=== PATIENT | male | born 1945 | race Caucasian/White ===

== ENCOUNTER → 2017-12-31 | Outpatient (CLI) | payer MEDICARE, OTHER ==
[~2017-12-31] MED LIST: ALLO-119 PO; ASPI-757 PO; BUSP30TA18 PO; CITA-145 PO; COLC0.6C3; LEVO750T44 PO; NITR-105 PO; TAMS0.4C70 PO
== END ==
LOC: LAB 13:40
PROVIDERS: ATTEND Urology
DX: N39.0 Urinary tract infection, site not specified (principal); R82.79 Other abnormal findings on microbiological examination of urine
CPT/HCPCS: 81001; 87088

== ENCOUNTER → 2018-02-01 | Outpatient (REF) | payer MEDICARE, OTHER | LOC: ZZSENDIN 13:11 | PROVIDERS: ATTEND Physician Assistant | DX: Z01.812 Encounter for preprocedural laboratory examination (principal); Z01.810 Encounter for preprocedural cardiovascular examination; Z01.818 Encounter for other preprocedural examination | CPT/HCPCS: 81001 ==

== ENCOUNTER → 2018-02-05 | Outpatient (CLI) | payer MEDICARE, OTHER | LOC: RESP 01:53 | PROVIDERS: ATTEND Physician Assistant | DX: J98.4 Other disorders of lung (principal) | CPT/HCPCS: 94060; 94726; 94729 ==

== ENCOUNTER 2018-03-05 00:13 | Observation (INO) | payer MEDICARE, OTHER ==
[2018-03-05] VITALS (15 sets, daily range): BP systolic 92–133; BP diastolic 58–81
[~2018-03-05] VITALS: Ht 170.2 cm; Wt 108.9 kg
[~2018-03-05 00:13] MED LIST changes: +ALB18R INH; +BUSP15TA69 PO; +GLUC15002 PO
[2018-03-05] MEDS: NORMOSOL R SOLN(*) 1000 ML BAG 1,000 ML IV PRN ×2 (05:26→09:15)
[2018-03-05] MEDS ORDERED: cloNIDine EPIDUR INJ 100MCG/ML 40 MCG, ROPIVACAINE 0.5% 20 ML VIAL 25 ML, EPINEPHrine H... EPI ONE (06:00)
[2018-03-05] MEDS ORDERED: ACETAMINOPHEN 500 MG TAB PO ONE (06:00)
[2018-03-05] MEDS ORDERED: PREGABALIN 75 MG CAPSULE PO ONE (06:00)
[2018-03-05] MEDS ORDERED: CLINDAMYCIN(*) 900 MG/NS 50 ML 50 ML IVPB ONE (06:00)
[2018-03-05] MEDS ORDERED: FAMOTIDINE 20 MG TAB PO ONE (06:00)
[2018-03-05] MEDS ORDERED: MIDAZOLAM 2 MG/2 ML VIAL IVP PRN (06:00)
[2018-03-05] MEDS ORDERED: BACITRACIN 50000 UNIT/VIAL 100,000 UNIT in NS 0.9% 3000 ML IRRIGATION BAG 3,000 ML IR ONE (06:00)
[2018-03-05] MEDS ORDERED: LIDOCAINE/SOD BICARB 8.4% SYR ID ONE (06:00)
[2018-03-05] MEDS ORDERED: TRANEXAMIC AC 1000 MG/10ML SDV 1,000 MG in DEXTROSE 5% 50 ML BAG 50 ML IV ONE (06:00)
[2018-03-05] MEDS ORDERED: CELECOXIB 200 MG CAP PO ONE (06:00)
[2018-03-05] MEDS ORDERED: fentaNYL CITR 100 MCG/2 ML AMP ONE ×2 (06:43→08:40)
[2018-03-05] MEDS ORDERED: PROPOFOL EMUL(*) 10MG/ML 20 ML 20 ML ONE ×2 (06:44→08:41)
[2018-03-05] MEDS ORDERED: LIDOCAINE 2% IV 100 MG/5ML SYR ONE (06:44)
[2018-03-05] MEDS ORDERED: PROPOFOL EMUL(*) 10MG/ML 20 ML 60 ML ONE (06:45)
[2018-03-05] MEDS ORDERED: BUPIVACAINE 0.5% INJ 30ML VIAL ONE (07:00)
[2018-03-05] MEDS ORDERED: ONDANSETRON 4 MG/2 ML VIAL ONE (07:17)
[2018-03-05] MEDS ORDERED: DEXAMETHASONE SOD PHOS 10MG/ML ONE (07:17)
[2018-03-05] MEDS ORDERED: KETAMINE HCL 200 MG/20 ML MDV ONE ×2 (07:18→08:20)
[2018-03-05] MEDS ORDERED: PROPOFOL EMUL(*) 10MG/ML 20 ML 40 ML ONE (07:50)
[2018-03-05] MEDS ORDERED: VASOPRESSIN 20 UNIT/ML VIAL ONE (08:00)
--- NOTE | 2018-03-05 09:44 | RADIOLOGY IMAGING REPORT ---
FACILITY: [facility] PATIENT NAME: Tim Franco : 1945 MR: [id number] V: [id number] EXAM DATE: ORDERING PHYSICIAN: ARABELLA CABRERA TECHNOLOGIST: [place] [facility] [place]: Tim Franco : 1945 Visit/Account:[id number] Date of Sevice: 03/05/2018 Exam type: KNEE LIMITED RIGHT History: S/P TOTAL KNEE ARTHROPLASTY Comparison: None. Findings: Two views the right knee demonstrate a right knee arthroplasty in good anatomic alignment. Soft tiss ue gas projects over the anterior aspect this postoperative knee. Incidentally noted are moderate va scular calcifications IMPRESSION: 1. As above Report Dictated By: Ching Calhoun MD at 03/05/2018 9:39 AM Report E-Signed By: Ching Calhoun MD at 03/05/2018 9:40 AM WSN:[id number]
[2018-03-05] MEDS ORDERED: ALBUTEROL 2.5 MG/3 ML NEB NEB PRN (11:05)
[2018-03-05] MEDS ORDERED: ZOLPIDEM TARTRATE 5 MG TAB PO PRN (11:15)
[2018-03-05] MEDS ORDERED: BISACODYL 10 MG SUPP PR PRN (11:15)
[2018-03-05] MEDS ORDERED: diphenhydrAMINE 25 MG CAP PO PRN (11:15)
[2018-03-05] MEDS ORDERED: LR 1000 ML BAG 1000 ML IV PRN (11:15)
[2018-03-05] MEDS ORDERED: PROMETHAZINE HCL(*) 25 MG SUPP PR PRN (11:15)
[2018-03-05] MEDS ORDERED: MAGNESIUM HYDROXIDE* 30ML UDCP PO PRN (11:15)
[2018-03-05] MEDS ORDERED: ONDANSETRON 4 MG/2 ML VIAL IVP PRN (11:15)
[2018-03-05] MEDS ORDERED: HYDROmorphone HCL 2 MG/ML SDV IVP PRN (11:15)
[2018-03-05] MEDS ORDERED: diphenhydrAMINE 50 MG/ML VIAL IVP PRN (11:15)
[2018-03-05] MEDS ORDERED: PROMETHAZINE 25 MG/ML 1 ML AMP IVP PRN (11:15)
[2018-03-05] MEDS ORDERED: MAGNESIUM CITRATE 300 ML BTL PO PRN (11:15)
[2018-03-05] MEDS ORDERED: FLUSH 10 ML SYR IVP PRN (11:15)
--- NOTE | 2018-03-05 11:38 | Hospitalist Progress Note ---
Subjective Progress Notes Subjective No cp/sob. 200cc of EBL. 1950cc of crystalloid, TXA and dexamethasone given intra-op. Lowest intra-op BP was 80/50. Physical Exam Vital Signs Date Time Temp Pulse Resp B/P (MAP) Pulse Ox O2 Delivery O2 Flow Rate FiO2 03/05/18 10:15 76 12 97 03/05/18 05:22 97.8 133/81 (98) Room Air Intake and Output 03/06/18 07:00 Intake Total 2350 ml Output Total 150 ml Balance 2200 ml Intake IV Total 2350 ml Output Estimated Blood Loss 150 ml General Appearance: Alert, Awake, No Acute Distress Cardiovascular: Regular Rate and Rhythm Respiratory: Clear to Auscultation Extremities: No Edema Assessment and Plan Problems: (1) Status post knee replacement Status: Acute Assessment & Plan: No CV/pulmonary issues. He has no personal h/o DVT/PE, but his father had a PE in his [address]'s[address] Nicole has already prescribed Xarelto as an outpatient, so will start it tomorrow. His ASA that he takes chronically ( stopped it 10 days prior to surgery) will be restarted after he finishes the Xarelto. The patient has no h/o CAD/CVD. (2) Anxiety and depression Status: Chronic Assessment & Plan: Continue chronic Buspirone (which he takes once daily), and Citalopram. He will only be on Phenergan for nausea because Zofran and Citalopram cause QT prolongation. (3) Gout Status: Chronic Assessment & Plan: No symptoms consistent with a flare. Continue chronic Allopurinol and will use prn Colchicine for a flare. (4) Obstructive lung disease Status: Chronic Assessment & Plan: Recently diagnosed by PFT's. He uses albuterol prn, which will be continued. Lungs are clear. (5) FLOYD on CPAP Status: Chronic Problem Qualifiers (1) Status post knee replacement: Laterality: right Qualified Codes: Z96.651 - Presence of right artificial knee joint DELBERT MOREJON MD Mar 05, 2018 11:38
[2018-03-05] MEDS: CLINDAMYCIN 150 MG CAP PO SCH ×2 (16:40→23:01)
--- NOTE | 2018-03-05 18:57 | OPERATIVE REPORT 1 ---
EVENT DATE: March 05, 2018 SURGEON: Harman Nicole MD ANESTHESIOLOGIST: Ant Graham MD ANESTHESIA: General plus spinal. LABORER SALVAGE: ASYA Michaels PREOPERATIVE DIAGNOSIS Right knee osteoarthritis. POSTOPERATIVE DIAGNOSIS Right knee osteoarthritis. PROCEDURE PERFORMED Right total knee arthroplasty. FINDINGS The patient had a significant amount of arthritic changes associated with his knee and was amenable for a total knee arthroplasty. ESTIMATED BLOOD LOSS About 200 mL. DRAINS None. COMPLICATIONS None. TOURNIQUET TIME Up for about 22 minutes just during the cementation and the initial sewing part. IMPLANTS USED DePuy Attune size 7 posterior stabilized femur with a size 7 rotating platform, tibia a 7 x 5 rotating platform tibial insert, and a 38 anatomic patella. SPECIMENS None. INDICATIONS AND HISTORY This patient is a 72-year-old male who presented to my clinic for evaluation of right knee pain and irritation going on for some time. He continued to have pain and irritation despite conservative management, and so therefore, he wanted to go ahead with a total knee arthroplasty today, March 05, 2018. The risks and benefits were discussed with him, and informed consent was obtained. We did talk to him specifically about his flexion contracture associated with this and that it may not go completely straight again, but that we will do everything we can to get him as stable as possible and get him as much use as possible. DESCRIPTION OF PROCEDURE As the patient was brought in the operating room, he and the procedure were both verified. He was placed supine on the operative table and induced and intubated by Anesthesia after being given a spinal also. The right lower extremity was then prepped and draped in the usual fashion, and a timeout was observed verifying the correct patient and procedure. Our incision was made over the anterior aspect of the knee, taken through the skin and subcutaneous tissue. I was able to go through down to the medial parapatellar approach and then went into the medial parapatellar approach without any difficulty and cauterized the bleeders along the way. I then was able to remove the anterior aspect of the menisci on both sides and the patellar fat pad in order to gain access to the knee itself. Once I was able to do this, I then removed the superior synovitis above the femur and then was able to high flex the knee and shanthi the patella. Once I was able to do this, I was then able to remove the ACL and PCL complex and then drill a central hole down the central portion of the femur. We then used the Attune guides set on 5 and 9 in order to resect the distal femur and then sized it to a 7 distal femur. We then put in the four-in-one cutting block , then cut the four cuts without any difficulty, and then put in the notch block and made those cuts without any difficulty. There were some posterior osteophytes in the area that were removed shortly after this and a little bit of residual aspects of the PCL through this area. I was then able to subluxate the tibia forward and then remove the posterior aspects of the menisci. I gained good access and exposure to the tibia. I was then able to drill a central hole into the tibia using the Attune guides once again set on zero slope. I was then able to resect 3 mm off the medial side using the standard guides and then made sure that everything was in good alignment. I was then able to resect a little bit more of the posterior aspect of the knee and then release some of the posterior capsule to try to work on flexion contracture using a Rose in the posterior condyles. This was then followed by sizing of the tibia to a 7. We ensured that this was still in good alignment and had no other signs of problems with the alignment yrn. We then prepped the tibia with the standard drill punch and then placement of the trial components in this area. I then put in the full trial components with a 7 posterior stabilized femur with a 7 x 5 insert on the rotating platform tibia. This had good flexion and extension. We were able to get him to full extension , and he had good tracking of the patella with flexion and extension associated with this. There were no signs of instability with the anterior drawer or medial or lateral valgus stress. I then turned attention to the patella where I was then able to resect about 9.5 mm off the patella, sized it to a 38 mm patella, and this still tracked well and had no signs of problems. So therefore, these were the final components chosen. The tourniquet was then inflated. The cement was mixed on the back table, and the final components were installed without any difficulty. The cement was allowed to harden, and then I was able to flex and extend it and found that everything was still in good alignment. I then closed the medial parapatellar approach with #2 Stratafix. This was then followed by a 2- 0 Vicryl in the subcutaneous fat and then a 2-0 Stratafix in the subcutaneous tissue, followed by a subcuticular 4-0 Monocryl and then dressed with a bio- occlusive dressing. The tourniquet was let down after about 22 minutes after the first part of sewing. There were no signs of further bleeding or issues associated with this, and so therefore, a sterile dressing was applied and a large wrap. The patient was awakened, extubated, and transferred to PACU in stable condition. BANG
[2018-03-05] MEDS ORDERED: TAMSULOSIN HCL 0.4 MG CAP PO SCH (21:00)
[2018-03-06 01:51] VITALS: BP 129/79
[2018-03-06 05:55] VITALS: BP 116/76
[2018-03-06] MEDS: CLINDAMYCIN 150 MG CAP PO SCH (06:16)
[2018-03-06] MEDS ORDERED: OXYC-865 PO (07:28)
[2018-03-06 07:35] VITALS: BP 115/73
[2018-03-06] MEDS ORDERED: CITALOPRAM HYDROBROM 20 MG TAB PO SCH (09:00)
[2018-03-06] MEDS ORDERED: RIVAROXABAN 10 MG TAB PO SCH (09:00)
[2018-03-06] MEDS ORDERED: ALLOPURINOL 300 MG TAB PO SCH (09:00)
[2018-03-06] MEDS ORDERED: busPIRone HCL 5 MG TAB PO SCH (09:00)
[2018-03-06] MEDS ORDERED: RIV10 PO (10:53)
--- NOTE | 2018-03-06 13:35 | Hospitalist Progress Note ---
Subjective Progress Notes Subjective He was admitted s/p knee replacement. He had no acute events overnight. Patient Complains of: Cardiovascular: No: Chest Pain Respiratory: No: Shortness of Breath Physical Exam Vital Signs Date Time Temp Pulse Resp B/P (MAP) Pulse Ox O2 Delivery O2 Flow Rate FiO2 03/06/18 07:54 90 03/06/18 07:54 Room Air 03/06/18 07:35 97.8 78 14 115/73 (87) 03/06/18 01:51 2.0 Intake and Output 03/07/18 01:00 Intake Total 1010 ml Balance 1010 ml Intake Oral 1010 ml # Voids 1 General Appearance: Alert, Awake, No Acute Distress, Afebrile Neuro: No Gross deficits Cardiovascular: Regular Rate and Rhythm Respiratory: No Respiratory Distress, Clear to Auscultation GI: Soft and Non-Tender Psych: Alert & Oriented X3, Appropriate Mood & Affect Result Diagram: 03/06/18 0549 03/06/18 0549 Assessment and Plan Problems: (1) Status post knee replacement Status: Acute Assessment & Plan: No CV/pulmonary issues. He has no personal h/o DVT/PE, but his father had a PE in his [address]'s. [address] Nicole has already prescribed Xarelto as an outpatient, so will start it tomorrow. His ASA that he takes chronically ( stopped it 10 days prior to surgery) will be restarted after he finishes the Xarelto. The patient has no h/o CAD/CVD. (2) Anxiety and depression Status: Chronic Assessment & Plan: Continue chronic Buspirone (which he takes once daily), and Citalopram. He will only be on Phenergan for nausea because Zofran and Citalopram cause QT prolongation. (3) Gout Status: Chronic Assessment & Plan: No symptoms consistent with a flare. Continue chronic Allopurinol and will use prn Colchicine for a flare. (4) Obstructive lung disease Status: Chronic Assessment & Plan: Recently diagnosed by PFT's. He uses albuterol prn, which will be continued. Lungs are clear. (5) FLOYD on CPAP Status: Chronic Exam Sepsis Risk: No Definite Risk Problem Qualifiers (1) Status post knee replacement: Laterality: right Qualified Codes: Z96.651 - Presence of right artificial knee joint ELIAS AGUIAR [facility] Mar 06, 2018 13:35
[2018-03-06 13:50] VITALS: Ht 170.2 cm; Wt 108.9 kg
[2018-03-14] MEDS ORDERED: CITA-145 PO (08:46)
== END 2018-03-06 07:29 | disposition home or self-care (01) ==
LOC: OR 00:13 → MED 10:45
PROVIDERS: ADMIT Orthopaedic Surgery; ATTEND Orthopaedic Surgery
DX: M17.11 Unilateral primary osteoarthritis, right knee (principal); E66.9 Obesity, unspecified; I49.9 Cardiac arrhythmia, unspecified; Z79.01 Long term (current) use of anticoagulants; Z79.82 Long term (current) use of aspirin
CPT/HCPCS: 27447; 36415; 73560; 85014; 85018; 85610; 86850; 86900; 86901; 96372; 97116; 97161; 97530; A9270; C1713; C1776; G0378; J0171; J0735; J1100; J1170; J1885; J2001; J2250; J2405; J2550; J2704; J2795; J3010; J3490; J7050; J7060; 82310; 82374; 82435; 82565; 82947; 84132; 84295; 84520

== ENCOUNTER 2018-03-31 11:03 | Emergency (ER) | payer MEDICARE, OTHER ==
[2018-03-06 13:50] VITALS: Wt 108.9 kg
[~2018-03-31 11:03] MED LIST changes: +OXYC-865 PO; +RIV10 PO
--- NOTE | 2018-03-31 11:13 | ER Report ---
History and Physical Time Seen By MD: 11:13 HPI/ROS CHIEF COMPLAINT: Knee redness, increasing pain. HISTORY OF PRESENT ILLNESS: 72-year-old male patient presents to emergency room with complaint of right knee redness and increasing pain. Patient states that he gone to physical therapy on . They had noticed that he had an area on the proximal end of the scar which was erythematous. She states that she felt that he was "festering". He states they then tried to pull out a suture that did not absorb. He states that since then he's noticed some purulent drainage from that site. He states that he tried to express out some purulent drainage this morning. He states that he was able to get out some, however when he went to congregation the knees became very warm to the touch, and started having increasing pain. Patient denies having any nausea, vomiting or diarrhea. Patient states he is not taking any medication for this. REVIEW OF SYSTEMS: Respiratory: No cough, no dyspnea. Cardiovascular: No chest pain, no palpitations. Gastrointestinal: No vomiting, no abdominal pain. Musculoskeletal: As noted above Allergies: Coded Allergies: latex (Verified Allergy, Severe, Hives, Rash, 06/15/17) Penicillins (Verified Allergy, Intermediate, Tongue Swelling, 06/15/17) oxycodone (Verified Allergy, Intermediate, ITCHY, RASH , 03/31/18) pollen extracts (Verified Allergy, Intermediate, Sinus Issues, 06/15/17) Uncoded Allergies: Rubber (Adverse Reaction, Intermediate, Dry, Itch, Irritation, 06/05/17) Home Meds Active Scripts Sulfamethoxazole/Trimet 800-160 Mg Tab (BACTRIM DS TABLET) 1 Each Tablet, 1 TAB PO Q12H, #20 TAB Prov:ARIANA DE LA CRUZ 03/31/18 Citalopram Hydrobromide (CITALOPRAM HBR) 20 Mg Tablet, 40 MG PO QDAY, #180 TAB 1 Refill Prov:THO BECERRIL MD 03/14/18 Reported Medications Aspirin (ASPIRIN) 325 Mg Tablet, 325 MG PO DAILY, TAB 03/31/18 Albuterol Sulfate (VENTOLIN HFA) 18 Gm Inh, 1-2 PUFF INH PRN, INH 02/25/18 Glucosamine Hcl (GLUCOSAMINE HCL) 1,500 Mg Tablet, 1500 MG PO 02/25/18 Allopurinol (ZYLOPRIM) 300 Mg Tablet, 100 MG PO QDAY, TAB 02/25/18 Buspirone Hcl (BUSPIRONE HCL) 15 Mg Tablet, 15 MG PO BID, #10 TAB 02/25/18 Colchicine (Colchicine) 0.6 Mg Capsule, Y for GAS/HEARTBURN 06/05/17 Tamsulosin Hcl (TAMSULOSIN HCL) 0.4 Mg Cap.er.24h, 0.4 MG PO QDAY, CAP 06/05/17 Discontinued Reported Medications Oxycodone Hcl/Acetaminophen (PERCOCET 5-325 MG TABLET) 1 Each Tablet, 1 EACH PO Q4H for PAIN, #42 TAB 03/06/18 Discontinued Scripts Rivaroxaban (XARELTO 10 MG TAB (OR EQUIV)) 10 Mg Tablet, 10 MG PO QDAY, #14 TAB Prov:ELIAS AGUIAR VARNISHING MACHINE OPERATOR 03/06/18 Past Medical/Surgical History Patient has a past medical history of irregular heartbeat, asthma, frequent UTI , gout, arthritis, depression. Patient has a surgical history of appendectomy, back surgery, torn retina repair , tonsillectomy. Reviewed Nurses Notes: Yes Hx Smoking: No Smoking Status: Never Smoker Hx Alcohol Use: No Constitutional Vital Sign - Last 24 Hours 03/31/18 03/31/18 03/31/18 03/31/18 11:03 11:09 11:11 11:18 Temp 99.5 Pulse ??? 98 96 Resp 18 B/P (MAP) 124/76 (92) 124/76 Pulse Ox 92 92 O2 Delivery Room Air 03/31/18 03/31/18 03/31/18 03/31/18 11:30 11:33 11:48 12:00 Pulse 92 92 B/P (MAP) 126/65 (85) 124/78 (93) Pulse Ox 92 92 03/31/18 03/31/18 03/31/18 03/31/18 12:03 12:18 12:23 12:30 Pulse 91 88 90 B/P (MAP) 119/76 (90) Pulse Ox 89 91 88 03/31/18 03/31/18 03/31/18 03/31/18 12:38 12:53 13:00 13:08 Pulse 85 83 88 B/P (MAP) 121/75 (90) Pulse Ox 91 91 92 Intake and Output 03/31/18 03/31/18 04/01/18 15:00 23:00 07:00 Intake Total 50 ml Balance 50 ml Physical Exam General Appearance: The patient is alert, has no immediate need for airway protection and no current signs of toxicity. Respiratory: Chest is non tender, lungs are clear to auscultation. Cardiac: regular rate and rhythm Gastrointestinal: Abdomen is soft and non tender, no masses, bowel sounds normal. Musculoskeletal: Neck: Neck is supple and non tender. Extremities have full range of motion and are non tender. Skin: No rashes or lesions. Patient has some redness to the right knee, no obvious swelling. Does have an opening at the proximal end of the scar. DIFFERENTIAL DIAGNOSIS: After history and physical exam differential diagnosis was considered for cellulitis, septic joint, infected replacement. Medical Decision Making Data Points Result Diagram: 03/31/18 1130 03/31/18 1130 Laboratory Hematology Test 03/31/18 11:30 Red Blood Count 3.71 M/uL (4.00-5.60) Mean Corpuscular Volume 96.0 fL (80.0-96.0) Mean Corpuscular Hemoglobin 34.3 pg (26.0-33.0) Mean Corpuscular Hemoglobin Concent 35.8 g/dL (32.0-36.0) Red Cell Distribution Width 14.3 % (11.5-14.5) Mean Platelet Volume 7.1 fL (7.2-11.1) Neutrophils (%) (Auto) 62.3 % (39.4-72.5) Lymphocytes (%) (Auto) 25.4 % (17.6-49.6) Monocytes (%) (Auto) 8.5 % (4.1-12.4) Eosinophils (%) (Auto) 2.5 % (0.4-6.7) Basophils (%) (Auto) 1.3 % (0.3-1.4) Nucleated RBC Relative Count (auto) 0.0 /100WBC Neutrophils # (Auto) 4.7 K/uL (2.0-7.4) Lymphocytes # (Auto) 1.9 K/uL (1.3-3.6) Monocytes # (Auto) 0.6 K/uL (0.3-1.0) Eosinophils # (Auto) 0.2 K/uL (0.0-0.5) Basophils # (Auto) 0.1 K/uL (0.0-0.1) Nucleated RBC Absolute Count (auto) 0.00 K/uL Sodium Level 139 mmol/L (137-145) Potassium Level 4.0 mmol/L (3.5-5.0) Chloride Level 105 mmol/L (98-107) Carbon Dioxide Level 23 mmol/L (22-30) Blood Urea Nitrogen 17 mg/dl (9-21) Creatinine 1.00 mg/dl (0.66-1.25) Glomerular Filtration Rate Calc > 60.0 Random Glucose 109 mg/dl (75-110) Calcium Level 9.2 mg/dl (8.4-10.2) Total Bilirubin 0.5 mg/dl (0.2-1.3) Aspartate Amino Transf (AST/SGOT) 22 U/L (0-35) Alanine Aminotransferase (ALT/SGPT) 22 U/L (0-56) Alkaline Phosphatase 65 U/L (0-126) C-Reactive Protein 1.6 mg/dl (<1.0) Total Protein 7.4 g/dl (6.3-8.2) Albumin 4.2 g/dl (3.5-5.0) Chemistry Test 03/31/18 11:30 White Blood Count 7.5 k/uL (4.5-11.0) Red Blood Count 3.71 M/uL (4.00-5.60) Hemoglobin 12.7 g/dL (14.0-18.0) Hematocrit 35.6 % (42.0-52.0) Mean Corpuscular Volume 96.0 fL (80.0-96.0) Mean Corpuscular Hemoglobin 34.3 pg (26.0-33.0) Mean Corpuscular Hemoglobin Concent 35.8 g/dL (32.0-36.0) Red Cell Distribution Width 14.3 % (11.5-14.5) Platelet Count 223 K/uL (150-450) Mean Platelet Volume 7.1 fL (7.2-11.1) Neutrophils (%) (Auto) 62.3 % (39.4-72.5) Lymphocytes (%) (Auto) 25.4 % (17.6-49.6) Monocytes (%) (Auto) 8.5 % (4.1-12.4) Eosinophils (%) (Auto) 2.5 % (0.4-6.7) Basophils (%) (Auto) 1.3 % (0.3-1.4) Nucleated RBC Relative Count (auto) 0.0 /100WBC Neutrophils # (Auto) 4.7 K/uL (2.0-7.4) Lymphocytes # (Auto) 1.9 K/uL (1.3-3.6) Monocytes # (Auto) 0.6 K/uL (0.3-1.0) Eosinophils # (Auto) 0.2 K/uL (0.0-0.5) Basophils # (Auto) 0.1 K/uL (0.0-0.1) Nucleated RBC Absolute Count (auto) 0.00 K/uL Glomerular Filtration Rate Calc > 60.0 Calcium Level 9.2 mg/dl (8.4-10.2) Total Bilirubin 0.5 mg/dl (0.2-1.3) Aspartate Amino Transf (AST/SGOT) 22 U/L (0-35) Alanine Aminotransferase (ALT/SGPT) 22 U/L (0-56) Alkaline Phosphatase 65 U/L (0-126) C-Reactive Protein 1.6 mg/dl (<1.0) Total Protein 7.4 g/dl (6.3-8.2) Albumin 4.2 g/dl (3.5-5.0) EKG/Imaging Imaging KNEE 4 VIEW RIGHT Indication: Right knee pain. Comparison: 03/05/2018. Findings: 3 views right knee were obtained. Right knee arthroplasty are again present without periprosthetic lucency. No acute fracture or dislocation. No bony lesions. Small joint effusion is again present. Soft tissues are unremarkable with vascular calcifications present. IMPRESSION: 1.No acute osseous abnormality of the right knee. Small joint effusion. Report Dictated By: Nicola Agarwal at 03/31/2018 12:15 PM Report E-Signed By: Nicola Agarwal at 03/31/2018 12:17 PM ED Course/Re-evaluation ED Course Patient was admitted and examined, history and physical were obtained. Differential diagnoses were considered. On examination patient does have erythema and warmth to the right knee. He does have a wound the proximal end of the surgical scar. It measures approximately 3 mm across. Patient has tenderness to the knee. A CBC, CMP, CRP were done. Labs were unremarkable except the patient did have a slightly elevated CRP of 1.6. X-rays of the knee were unremarkable. I did call and discuss the case with Dr. Nicole, orthopedic surgeon, who performed the knee replacement. We discussed doing a tap of the knee. I told him that I was hesitant due to the apparent cellulitis and with the artificial joint. Dr. Nicole stated that he would prefer not to do a tap of the knee elicits was absolutely necessary. He states he did not feel that was necessary at this time. He recommended doing IV antibiotics here in the emergency room and then discharge the patient on oral antibiotics. I discussed this with the patient who verbalized understanding and agreement. He did receive 60 mg of clindamycin here in the emergency room we'll go ahead and discharge him home with Bactrim. He is follow-up with Dr. Nicole this week. He is to call tomorrow to make an appointment. Patient and his verbalized understanding and agreement with plan. Decision to Disposition Date: Mar 31, 2018 Decision to Disposition Time: 13:16 Depart Departure Latest Vital Signs Vital Signs Date Time Temp Pulse Resp B/P (MAP) Pulse Ox O2 Delivery O2 Flow Rate FiO2 03/31/18 13:08 88 92 03/31/18 13:00 121/75 (90) 03/31/18 11:11 99.5 18 Room Air Impression: Primary Impression: Cellulitis Condition: Improved Disposition: HOME OR SELF-CARE Referrals: THO BECERRIL MD (PCP) New Scripts Sulfamethoxazole/Trimet 800-160 Mg Tab (BACTRIM DS TABLET) 1 Each Tablet 1 TAB PO Q12H, #20 TAB Prov: ARIANA DE LA CRUZ 03/31/18 Patient Instructions: Cellulitis (ED) Additional Instructions: Limit activity by pain. Get plenty of rest. Follow up with Dr. Nicole, call tomorrow to make an appointment. Return to the ER if condition worsens. Take antibiotics as directed. Take Tylenol or Ibuprofen as needed for pain. You may change the dressing as needed. Problem Qualifiers Primary Impression: Cellulitis Site of cellulitis: extremity Site of cellulitis of extremity: lower extremity Laterality: right Qualified Codes: L03.115 - Cellulitis of right lower limb ARIANA DE LA CRUZ VARNISHING MACHINE OPERATOR Mar 31, 2018 11:13
[2018-03-31] MEDS ORDERED: ASPI-757 PO (11:26)
[2018-03-31 11:53] LABS: PLATELET COUNT, AUTOMATED 223 K/uL (150-450)
--- NOTE | 2018-03-31 12:24 | RADIOLOGY IMAGING REPORT ---
FACILITY: [facility] PATIENT NAME: Tim Franco : 1945 MR: [id number] V: [id number] EXAM DATE: ORDERING PHYSICIAN: ARIANA DE LA CRUZ TECHNOLOGIST: Location: [facility] Patient: Tim Franco : 1945 Visit/Account:[id number] Date of Sevice: 03/31/2018 KNEE 4 VIEW RIGHT Indication: Right knee pain. Comparison: 03/05/2018. Findings: 3 views right knee were obtained. Right knee arthroplasty are again present without periprosthetic lucency. No acute fracture or disloc ation. No bony lesions. Small joint effusion is again present. Soft tissues are unremarkable with vas cular calcifications present. IMPRESSION: 1.No acute osseous abnormality of the right knee. Small joint effusion. Report Dictated By: Nicola Agarwal at 03/31/2018 12:15 PM Report E-Signed By: Nicola Agarwal at 03/31/2018 12:17 PM WSN:[id number]
[2018-03-31] MEDS ORDERED: CLINDAMYCIN 600 MG/4 ML 600 MG in NS(*) 0.9% 100 ML BAG 100 ML IVPB ONE (12:30)
[2018-03-31] MEDS ORDERED: CLINDAMYCIN(*) 600 MG/NS 50 ML 50 ML IVPB ONE (12:45)
[2018-03-31 13:00] VITALS: BP 121/75
[2018-03-31] MEDS ORDERED: SULF-198 PO (13:15)
== END 2018-03-31 13:30 | disposition home or self-care (01) ==
LOC: ER 11:28
DX: L03.115 Cellulitis of right lower limb (principal)
CPT/HCPCS: 73564; 85025; 86140; 99283; J3490; 82040; 82247; 82310; 82374; 82435; 82565; 82947; 84075; 84132; 84155; 84295; 84450; 84460; 84520

== ENCOUNTER → 2018-12-03 | Outpatient (REF) | payer MEDICARE, OTHER ==
[2018-03-06 13:50] VITALS: BMI 37.6
[~2018-12-03] MED LIST changes: +SULF-198 PO
== END ==
LOC: ZZSENDIN 12:00
PROVIDERS: ATTEND Urology
DX: C61 Malignant neoplasm of prostate (principal); N41.1 Chronic prostatitis; N41.0 Acute prostatitis
CPT/HCPCS: 88305; 88344

== ENCOUNTER → 2018-12-11 | Outpatient (CLI) | payer MEDICARE, OTHER ==
[2018-03-06 13:50] VITALS: BMI 37.6
[~2018-12-11] MED LIST changes: +CLOB59LO4 TP; +CLOT15CR64 TP; +TRIA15CR40 TP
== END ==
LOC: LAB 11:54
PROVIDERS: ATTEND Urology
DX: R30.0 Dysuria (principal); B96.20 Unspecified Escherichia coli [E. coli] as the cause of diseases classified elsewhere
CPT/HCPCS: 81001; 87077; 87088; 87186

== ENCOUNTER 2018-12-12 12:31 | Inpatient (IN) | payer MEDICARE, OTHER ==
[~2018-12-12] VITALS: Ht 172.7 cm; Wt 108.9 kg
[~2018-12-12 12:31] MED LIST changes: -CLOB59LO4 TP; -CLOT15CR64 TP; -ERTA1VIA4 IVPB; -TRIA15CR40 TP
--- NOTE | 2018-12-12 12:33 | ER Report ---
History and Physical Time Seen By MD: 12:33 HPI/ROS CHIEF COMPLAINT: Nausea, vomiting 3 HISTORY OF PRESENT ILLNESS: 73-year-old male patient presents to emergency room with complaint of nausea and vomiting 3. Patient states that he had eaten at [employer] morning. He states that he was at home putting together a workbench. He states that after that he developed significant nausea and vomited 2. He states that he became concerned. He did sit in his chair and rest for a few minutes. During that time he became even more concerned that he may be having a heart attack. At that time he tried to contact his . He was unable to get a hold of her and contacted EMS. Patient states he is not currently having any chest pain. He states though that he has heard of nausea being a symptom of a heart attack and wanted to be evaluated. Patient has a recent diagnosis of prostate cancer. REVIEW OF SYSTEMS: Respiratory: No cough, no dyspnea. Cardiovascular: As noted above.. Gastrointestinal: As noted above Musculoskeletal: No back pain. Allergies: Coded Allergies: latex (Verified Allergy, Severe, Hives, Rash, 12/12/18) Penicillins (Verified Allergy, Intermediate, Tongue Swelling, 12/12/18) oxycodone (Verified Allergy, Intermediate, ITCHY, RASH , 12/12/18) pollen extracts (Verified Allergy, Intermediate, Sinus Issues, 12/12/18) povidone-iodine (Verified Adverse Reaction, Intermediate, 12/12/18) soap (Verified Adverse Reaction, Intermediate, 12/12/18) Uncoded Allergies: Rubber (Adverse Reaction, Intermediate, Dry, Itch, Irritation, 06/05/17) Home Meds Active Scripts Citalopram Hydrobromide (CITALOPRAM HBR) 20 Mg Tablet, 40 MG PO QDAY, #180 TAB 1 Refill Prov:THO BECERRIL MD 03/14/18 Reported Medications Triamcinolone Acetonide 0.1% Cr 15 Gm Tube (TRIAMCINOLONE ACETONIDE 0.1% CREAM) 15 Gm Cream..g., 15 GM TP PRN, TUBE 12/12/18 Clotrimazole/Betamethasone Dip (CLOTRIMAZOLE-BETAMETHASONE CRM) 15 Gm Cream..g., 0 TP QDAY 12/12/18 Clobetasol Propionate 0.05% Lotion (CLOBETASOL PROPIONATE 0.05% LOTION) 59 Ml Lotion, 0 TP PRN, BOT 12/12/18 Aspirin (ASPIRIN) 325 Mg Tablet, 325 MG PO DAILY, TAB 03/31/18 Albuterol Sulfate (VENTOLIN HFA) 18 Gm Inh, 1-2 PUFF INH PRN, INH 02/25/18 Glucosamine Hcl (GLUCOSAMINE HCL) 1,500 Mg Tablet, 3000 MG PO QDAY 02/25/18 Allopurinol (ZYLOPRIM) 300 Mg Tablet, 100 MG PO QDAY, TAB 02/25/18 Buspirone Hcl (BUSPIRONE HCL) 15 Mg Tablet, 30 MG PO QDAY, #10 TAB 02/25/18 Colchicine (Colchicine) 0.6 Mg Capsule, PRN for GAS/HEARTBURN 06/05/17 Tamsulosin Hcl (TAMSULOSIN HCL) 0.4 Mg Cap.er.24h, 0.4 MG PO QHS, CAP 06/05/17 Discontinued Scripts Sulfamethoxazole/Trimet 800-160 Mg Tab (BACTRIM DS TABLET) 1 Each Tablet, 1 TAB PO Q12H, #20 TAB Prov:ARIANA DE LA CRUZ COMMERCIAL ACCOUNTANT 03/31/18 Past Medical/Surgical History Patient has a past medical history of irregular heartbeat, asthma, frequent UTI, prostatitis, gout, arthritis, depression, prostate cancer. Patient has a surgical history of appendectomy, total knee replacement, back surgery, torn retina repair, laser surgery on eye. Reviewed Nurses Notes: Yes Hx Smoking: No Smoking Status: Never Smoker Hx Substance Use Disorder: No Hx Alcohol Use: No Constitutional Vital Sign - Last 24 Hours 12/12/18 12/12/18 12/12/18 12/12/18 12:33 12:35 12:35 12:54 Temp 96.7 Pulse 86 Resp 22 B/P (MAP) 138/82 138/82 (100) 124/77 (93) Pulse Ox 96 O2 Delivery Room Air O2 Flow Rate 2.0 12/12/18 12/12/18 12/12/18 12/12/18 13:00 14:01 14:02 14:07 Pulse 84 87 B/P (MAP) 112/67 (82) 145/85 (105) Pulse Ox 91 88 12/12/18 12/12/18 12/12/18 12/12/18 14:15 14:22 14:30 14:37 Pulse 90 91 B/P (MAP) 142/84 (103) 134/90 (105) Pulse Ox 93 92 12/12/18 12/12/18 12/12/18 12/12/18 14:45 14:52 15:00 15:07 Pulse 92 91 B/P (MAP) 124/82 (96) 126/86 (99) Pulse Ox 90 93 12/12/18 12/12/18 12/12/18 12/12/18 15:15 15:22 15:30 15:35 Pulse 86 85 Resp 10 B/P (MAP) 108/80 (89) 107/60 (76) Pulse Ox 89 91 12/12/18 12/12/18 12/12/18 12/12/18 15:45 15:50 16:00 16:05 Pulse 88 85 Resp 13 10 B/P (MAP) 144/91 (108) 137/84 (101) Pulse Ox 96 93 Physical Exam General Appearance: The patient is alert, has no immediate need for airway protection and no current signs of toxicity. Respiratory: Chest is non tender, lungs are clear to auscultation. Cardiac: regular rate and rhythm Gastrointestinal: Abdomen is distended and non tender, no masses, bowel sounds are hypoactive. Musculoskeletal: Neck: Neck is supple and non tender. Extremities have full range of motion and are non tender. Skin: No rashes or lesions. DIFFERENTIAL DIAGNOSIS: After history and physical exam differential diagnosis was considered for nausea and vomiting including but not limited to gastroenteritis, gastritis, appendicitis, and medication side effect. Included in the differential is HI. Medical Decision Making Data Points Result Diagram: 12/12/18 1235 12/12/18 1235 Laboratory Hematology Test 12/12/18 12:35 12/12/18 15:46 Red Blood Count 4.57 M/uL (4.00-5.60) Mean Corpuscular Volume 98.6 fL (80.0-96.0) Mean Corpuscular Hemoglobin 33.5 pg (26.0-33.0) Mean Corpuscular Hemoglobin Concent 34.0 g/dL (32.0-36.0) Red Cell Distribution Width 14.0 % (11.5-14.5) Mean Platelet Volume 7.0 fL (7.2-11.1) Neutrophils (%) (Auto) 57.2 % (39.4-72.5) Lymphocytes (%) (Auto) 29.9 % (17.6-49.6) Monocytes (%) (Auto) 9.8 % (4.1-12.4) Eosinophils (%) (Auto) 2.2 % (0.4-6.7) Basophils (%) (Auto) 0.9 % (0.3-1.4) Nucleated RBC Relative Count (auto) 0.1 /100WBC Neutrophils # (Auto) 4.9 K/uL (2.0-7.4) Lymphocytes # (Auto) 2.6 K/uL (1.3-3.6) Monocytes # (Auto) 0.8 K/uL (0.3-1.0) Eosinophils # (Auto) 0.2 K/uL (0.0-0.5) Basophils # (Auto) 0.1 K/uL (0.0-0.1) Nucleated RBC Absolute Count (auto) 0.01 K/uL Peripheral Blood Smear No Y/N Sodium Level 138 mmol/L (137-145) Potassium Level 3.6 mmol/L (3.5-5.0) Chloride Level 103 mmol/L (98-107) Carbon Dioxide Level 19 mmol/L (22-30) Blood Urea Nitrogen 17 mg/dl (9-21) Creatinine 1.40 mg/dl (0.66-1.25) Glomerular Filtration Rate Calc 49.8 Random Glucose 135 mg/dl (75-110) Calcium Level 9.3 mg/dl (8.4-10.2) Total Bilirubin 0.5 mg/dl (0.2-1.3) Aspartate Amino Transf (AST/SGOT) 27 U/L (0-35) Alanine Aminotransferase (ALT/SGPT) 22 U/L (0-56) Alkaline Phosphatase 77 U/L (0-126) Troponin I < 0.012 ng/ml Total Protein 8.0 g/dl (6.3-8.2) Albumin 4.6 g/dl (3.5-5.0) Amylase Level 67 U/L (0-110) Lipase 56 U/L (23-300) Helicobacter pylori IgG Antibody Positive (NEGATIVE) Urine Color Yellow Urine Clarity Clear Urine pH 5.0 pH (4.8-9.5) Urine Specific [place] 1.018 Urine Protein 30 mg/dL (NEGATIVE) Urine Glucose (UA) Negative mg/dL (NEGATIVE) Urine Ketones 20 mg/dL (NEGATIVE) Urine Blood Small (NEGATIVE) Urine Nitrite Positive (NEGATIVE) Urine Bilirubin Negative (NEGATIVE) Urine Urobilinogen Negative mg/dL (0.2-1.9) Urine Leukocyte Esterase Moderate (NEGATIVE) Urine RBC 4 /HPF (0-2/HPF) Urine WBC 99 /HPF (0-5/HPF) Urine Squamous Epithelial Cells Moderate /LPF (</=FEW) Urine Bacteria Many /HPF (NONE-FEW) Urine Mucus None /HPF (NONE-FEW) Chemistry Test 12/12/18 12:35 12/12/18 15:46 White Blood Count 8.5 k/uL (4.5-11.0) Red Blood Count 4.57 M/uL (4.00-5.60) Hemoglobin 15.3 g/dL (14.0-18.0) Hematocrit 45.1 % (42.0-52.0) Mean Corpuscular Volume 98.6 fL (80.0-96.0) Mean Corpuscular Hemoglobin 33.5 pg (26.0-33.0) Mean Corpuscular Hemoglobin Concent 34.0 g/dL (32.0-36.0) Red Cell Distribution Width 14.0 % (11.5-14.5) Platelet Count 252 K/uL (150-450) Mean Platelet Volume 7.0 fL (7.2-11.1) Neutrophils (%) (Auto) 57.2 % (39.4-72.5) Lymphocytes (%) (Auto) 29.9 % (17.6-49.6) Monocytes (%) (Auto) 9.8 % (4.1-12.4) Eosinophils (%) (Auto) 2.2 % (0.4-6.7) Basophils (%) (Auto) 0.9 % (0.3-1.4) Nucleated RBC Relative Count (auto) 0.1 /100WBC Neutrophils # (Auto) 4.9 K/uL (2.0-7.4) Lymphocytes # (Auto) 2.6 K/uL (1.3-3.6) Monocytes # (Auto) 0.8 K/uL (0.3-1.0) Eosinophils # (Auto) 0.2 K/uL (0.0-0.5) Basophils # (Auto) 0.1 K/uL (0.0-0.1) Nucleated RBC Absolute Count (auto) 0.01 K/uL Peripheral Blood Smear No Y/N Glomerular Filtration Rate Calc 49.8 Calcium Level 9.3 mg/dl (8.4-10.2) Total Bilirubin 0.5 mg/dl (0.2-1.3) Aspartate Amino Transf (AST/SGOT) 27 U/L (0-35) Alanine Aminotransferase (ALT/SGPT) 22 U/L (0-56) Alkaline Phosphatase 77 U/L (0-126) Troponin I < 0.012 ng/ml Total Protein 8.0 g/dl (6.3-8.2) Albumin 4.6 g/dl (3.5-5.0) Amylase Level 67 U/L (0-110) Lipase 56 U/L (23-300) Helicobacter pylori IgG Antibody Positive (NEGATIVE) Urine Color Yellow Urine Clarity Clear Urine pH 5.0 pH (4.8-9.5) Urine Specific [place] 1.018 Urine Protein 30 mg/dL (NEGATIVE) Urine Glucose (UA) Negative mg/dL (NEGATIVE) Urine Ketones 20 mg/dL (NEGATIVE) Urine Blood Small (NEGATIVE) Urine Nitrite Positive (NEGATIVE) Urine Bilirubin Negative (NEGATIVE) Urine Urobilinogen Negative mg/dL (0.2-1.9) Urine Leukocyte Esterase Moderate (NEGATIVE) Urine RBC 4 /HPF (0-2/HPF) Urine WBC 99 /HPF (0-5/HPF) Urine Squamous Epithelial Cells Moderate /LPF (</=FEW) Urine Bacteria Many /HPF (NONE-FEW) Urine Mucus None /HPF (NONE-FEW) Urinalysis Test 12/12/18 15:46 Urine Color Yellow Urine Clarity Clear Urine pH 5.0 pH (4.8-9.5) Urine Specific [place] 1.018 Urine Protein 30 mg/dL (NEGATIVE) Urine Glucose (UA) Negative mg/dL (NEGATIVE) Urine Ketones 20 mg/dL (NEGATIVE) Urine Blood Small (NEGATIVE) Urine Nitrite Positive (NEGATIVE) Urine Bilirubin Negative (NEGATIVE) Urine Urobilinogen Negative mg/dL (0.2-1.9) Urine Leukocyte Esterase Moderate (NEGATIVE) Urine RBC 4 /HPF (0-2/HPF) Urine WBC 99 /HPF (0-5/HPF) Urine Squamous Epithelial Cells Moderate /LPF (</=FEW) Urine Bacteria Many /HPF (NONE-FEW) Urine Mucus None /HPF (NONE-FEW) EKG/Imaging EKG Interpretation 12 lead EKG: Rhythm: normal sinus rhythm [place]: normal QRS: normal ST segments: normal Imaging Abdomen AP erect and/or decubitus view: HISTORY: Chest pain, vomiting. Patient unable to stand. COMPARISON: None. FINDINGS: Supine and left lateral decubitus images were obtained. Bowel gas pattern is nonspecific without evidence of ileus, obstruction or free air. There may be a few scattered air-fluid levels but this is nonspecific. Stool is present in the right and rectosigmoid colon. There are no calcifications identified over the kidneys or along the expected course of the ureters. Mild degenerative changes present in the thoracic spine. IMPRESSION: Nonspecific bowel gas pattern. There are no findings of ileus, obstruction or free air. Report Dictated By: Allie Brown MD at 12/12/2018 2:12 PM Report E-Signed By: Allie Brown MD at 12/12/2018 2:14 PM Chest 2 views: HISTORY: Chest pain, vomiting. COMPARISON: 06/15/2017 FINDINGS: Frontal and lateral chest: Heart appears enlarged but may be accentuated by the AP technique. Mediastinal contours are normal. Pulmonary vasculature is within normal limits. There is no focal infiltrate or pleural effusion. No pneumothorax. No evidence of congestive heart failure. Degenerative changes present in the thoracic spine. IMPRESSION: Mild cardiomegaly although may be accentuated by projection. There is no evidence of acute cardiopulmonary abnormality otherwise. Report Dictated By: Allie Brown MD at 12/12/2018 2:14 PM Report E-Signed By: Allie Brown MD at 12/12/2018 2:16 PM ED Course/Re-evaluation ED Course Patient was admitted to an exam room, history and physical were obtained. Differential diagnoses were considered. On reexamination patient had no tenderness to palpation of the abdomen or the chest. A CBC, CMP, urinalysis were obtained. Lab results were unremarkable except patient did have a obvious urinary tract infection. Patient was started on Bactrim yesterday. I did do an H. pylori which was positive. I felt that we should go ahead and treat the patient with an antibiotic they can cover both the H. pylori as well as a prostatitis. I discussed the case with Dr. Sol, urology, who is taken care of the patient. He felt that Levaquin would be a poor choice as he did have Levaquin following his prostate biopsy. He is concerned that the bacteria may be resistant to Levaquin. He felt that it would be best for the patient to go ahead and admit him and treat him with IV bit antibiotics overnight and wait for the culture to return. He did request that I get a lactate. Lactate was obtained and the results were 2.9. I discussed the findings with the patient who verbalized understanding and agreement with plan to admit. Decision to Disposition Date: December 12, 2018 Decision to Disposition Time: 15:59 Depart Departure Latest Vital Signs Vital Signs Date Time Temp Pulse Resp B/P (MAP) Pulse Ox O2 Delivery O2 Flow Rate FiO2 12/12/18 16:05 85 10 93 12/12/18 16:00 137/84 (101) 12/12/18 12:35 2.0 12/12/18 12:33 96.7 Room Air Impression: Primary Impression: Prostatitis Additional Impression: H pylori ulcer Condition: Condition Unchanged Disposition: Admitted from ER Referrals: SIGIFREDO BAE DO (PCP) Problem Qualifiers Primary Impression: Prostatitis Prostatitis type: acute Qualified Codes: N41.0 - Acute prostatitis ARIANA DE LA CRUZ December 12, 2018 12:33
[2018-12-12] MEDS ORDERED: NS(*) 0.9% 1000 ML BAG 1,000 ML IV ONE (12:37)
[2018-12-12] MEDS ORDERED: ONDANSETRON 4 MG/2 ML VIAL IVP ONE (12:40)
[2018-12-12] MEDS ORDERED: ASPIRIN 81 MG CHEW PO ONE (12:40)
[2018-12-12 12:46] LABS: PLATELET COUNT, AUTOMATED 252 K/uL (150-450)
[2018-12-12] MEDS ORDERED: LORazepam 2 MG/ML VIAL IVP ONE (12:55)
--- NOTE | 2018-12-12 13:00 | EKG ---
FACILITY: [facility] PATIENT NAME: JIM BARRAZA : [id number] MR: [id number] V: [id number] EXAM DATE: ORDERING PHYSICIAN: ARIANA DE LA CRUZ TECHNOLOGIST: SHRUTHI Test Reason : NAUSEUA Blood Pressure : / mmHG Vent. Rate : 085 BPM Atrial Rate : 085 BPM P-R Int : 172 ms QRS Dur : 088 ms QT Int : 394 ms P-R-T Axes : 079 037 047 degrees QTc Int : 468 ms Sinus rhythm Decreased R wave progression anteriorly Artifact in a few leads - repeat if needed Confirmed by RITU BLACK ([id number]) on 12/12/2018 4:20:38 PM Referred By: ARIANA Confirmed By:RITU BLACK
--- NOTE | 2018-12-12 14:17 | RADIOLOGY IMAGING REPORT ---
FACILITY: [facility] PATIENT NAME: Tim Franco : 1945 MR: [id number] V: [id number] EXAM DATE: ORDERING PHYSICIAN: ARIANA DE LA CRUZ TECHNOLOGIST: Location: [facility] Patient: Tim Franco : 1945 Visit/Account:[id number] Date of Sevice: 12/12/2018 Abdomen AP erect and/or decubitus view: HISTORY: Chest pain, vomiting. Patient unable to stand. COMPARISON: None. FINDINGS: Supine and left lateral decubitus images were obtained. Bowel gas pattern is nonspecific w ithout evidence of ileus, obstruction or free air. There may be a few scattered air-fluid levels but this is nonspecific. Stool is present in the right and rectosigmoid colon. There are no calcifications identified over the kidneys or along the expected course of the ureters. Mild degenerative changes present in the thoracic spine. IMPRESSION: Nonspecific bowel gas pattern. There are no findings of ileus, obstruction or free air. Report Dictated By: Allie Brown MD at 12/12/2018 2:12 PM Report E-Signed By: Allie Brown MD at 12/12/2018 2:14 PM WSN:[email or web address]
--- NOTE | 2018-12-12 14:20 | RADIOLOGY IMAGING REPORT ---
FACILITY: [facility] PATIENT NAME: Tim Franco : 1945 MR: [id number] V: [id number] EXAM DATE: ORDERING PHYSICIAN: ARIANA DE LA CRUZ TECHNOLOGIST: Location: [facility] [place] Patient: Tim Franco : 1945 Visit/Account:[id number] Date of Sevice: 12/12/2018 Chest 2 views: HISTORY: Chest pain, vomiting. COMPARISON: 06/15/2017 FINDINGS: Frontal and lateral chest: Heart appears enlarged but may be accentuated by the AP techniqu e. Mediastinal contours are normal. Pulmonary vasculature is within normal limits. There is no foc al infiltrate or pleural effusion. No pneumothorax. No evidence of congestive heart failure. Degenerative changes present in the thoracic spine. IMPRESSION: Mild cardiomegaly although may be accentuated by projection. There is no evidence of acu te cardiopulmonary abnormality otherwise. Report Dictated By: Allie Brown MD at 12/12/2018 2:14 PM Report E-Signed By: Allie Brown MD at 12/12/2018 2:16 PM WSN:[email or web address]
[2018-12-12 16:37] VITALS: BP 134/81
[2018-12-12] MEDS ORDERED: NS(*) 0.9% 1000 ML BAG 1,000 ML IV PRN ×2 (16:55→18:25)
[2018-12-12] MEDS ORDERED: LORazepam 2 MG/ML VIAL IVP PRN (16:55)
[2018-12-12] MEDS ORDERED: ONDANSETRON 4 MG/2 ML VIAL IVP PRN (16:55)
[2018-12-12] MEDS ORDERED: CLOB59LO4 TP (17:05)
[2018-12-12] MEDS ORDERED: TRIA15CR40 TP (17:05)
[2018-12-12] MEDS ORDERED: CLOT15CR64 TP (17:05)
[2018-12-12] MEDS ORDERED: ALBUTEROL 8 GM INHALER INH PRN (18:25)
[2018-12-12] MEDS ORDERED: MAG HYD/AL HYD/SIMETH 30ML UDC PO PRN (18:25)
[2018-12-12] MEDS ORDERED: ZOLPIDEM TARTRATE 5 MG TAB PO PRN (18:25)
[2018-12-12] MEDS ORDERED: BISMUTH SUBSALICYLATE 262 MG PO PRN (18:25)
[2018-12-12] MEDS ORDERED: IBUPROFEN 600 MG TAB PO PRN (18:25)
[2018-12-12] MEDS ORDERED: ACETAMINOPHEN 325 MG TAB PO PRN (18:25)
[2018-12-12 18:47] VITALS: BP 113/83
[2018-12-12] MEDS: ERTAPENEM(*) 1 GM VIAL 1 GM in NS(*) 0.9% 100 ML MINI-BAG 100 ML IVPB SCH (18:47)
[2018-12-12 19:43] VITALS: BP 113/83
--- NOTE | 2018-12-12 19:47 | HISTORY AND PHYSICAL ---
DATE OF ADMISSION: December 12, 2018 CHIEF COMPLAINT Nausea and vomiting with anxiety. HISTORY OF PRESENT ILLNESS Patient is a 73-year-old white male who presented to the Emergency Room earlier today complaining of significant nausea and vomiting times two after eating at [employer] early in the morning. He became quite anxious and was concerned he was having a heart attack and presented for evaluation. He was seen in the Emergency Room. His vital signs were stable. His troponin was normal. Electrolytes were normal except his creatinine was slightly elevated at 1.4, up from a baseline of 1.0 one year ago. His CBC showed a normal white count of 8.5 with no left shift. His hematocrit was 45%. His urine was positive for nitrite and leukocyte esterase and microscopically showed many bacteria with 99 white blood cells per high-power field and 4 red blood cells. Of note, the patient underwent a transrectal ultrasound prostatic biopsy on the . At that time, he was given Levaquin prophylaxis. He had called the office yesterday and said he was having some mild dysuria. At that time, a urinalysis and culture were obtained. His urinalysis looked positive for infection and, therefore, he was started empirically on Bactrim. His current culture is growing out greater than 100,000 E. coli, sensitivities which are currently pending. The patient is now being admitted for a presumed urinary tract infection. He is currently without complaints and is resting comfortably in the hospital bed. He has some mild irritative symptoms when he urinates. Denies back or abdominal pain or other complaints. PAST MEDICAL HISTORY 1. Asthma. 2. Gout. 3. Anxiety. 4. Gastroesophageal reflux disease. 5. BPH. 6. Prostate cancer. 7. Sleep apnea. PAST SURGICAL HISTORY 1. Retina surgery. 2. Discectomy. 3. Left knee replacement. CURRENT MEDICATIONS 1. Ventolin. 2. Allopurinol. 3. Aspirin. 4. Buspirone. 5. Citalopram. 6. Colchicine. 7. Glucosamine. 8. Tamsulosin. ALLERGIES PENICILLIN, LATEX, OXYCODONE, and EXTERNAL IODINE. FAMILY HISTORY Noncontributory. REVIEW OF SYSTEMS Patient denies productive cough, liver disease, dyspnea on exertion, headache, change in bowel habit, or bleeding disorder. PHYSICAL EXAMINATION GENERAL: Patient is a well-developed, well-nourished male in no acute distress. HEENT: Normocephalic, atraumatic. CHEST: Clear to auscultation bilaterally. CARDIOVASCULAR: Regular rate and rhythm. ABDOMEN: Soft, nontender. No masses are palpated. GENITOURINARY: Deferred. EXTREMITIES: Without clubbing, cyanosis, or edema. NEUROLOGIC: Nonfocal. LABORATORY DATA The patient also had a lactate performed upon admission, which was mildly elevated at 2.9. Serology also was positive for H. pylori. IMAGING He had a chest x-ray which showed no evidence of acute pulmonary abnormalities. He also had a KUB which showed a nonspecific bowel gas pattern and no findings of ileus, obstruction, or free air. IMPRESSION A 73-year-old white male who is approximately one week status post transrectal ultrasound biopsy of the prostate, which did reveal a small amount of focal adenocarcinoma, 3 + 3 = 6, who now has an Escherichia coli urinary tract infection, the sensitivities of which are pending. His CBC is normal without evidence of infection; however, he does have a mildly elevated lactate. No other obvious source of infection. PLAN Will admit the patient to the hospital. Will start him on intravenous hydration. Will also start him on broad-spectrum antibiotics pending his culture results which should return tomorrow. On speaking with Dr. Dixon of the hospitalist service, we have elected to put him on Invanz 1 g q.24 hours. Will also start him on Protonix 40 mg once a day for his H. pylori with ultimate treatment with his primary care physician after discharge. Will follow his vital signs, urine output, and repeat his lactate until it is normal. BANG
[2018-12-12 20:01] VITALS: BP 118/84
[2018-12-12] MEDS: busPIRone HCL 5 MG TAB PO SCH (21:30)
[2018-12-12] MEDS: LR(*) 1000 ML BAG 1,000 ML IV PRN (21:41)
[2018-12-12 22:03] VITALS: BP 130/79
--- NOTE | 2018-12-12 22:07 | Hospitalist Progress Note ---
Subjective Progress Notes Subjective Asked by Dr. Sol to see Mr. Barraza regarding elevated lactate and urinary tract infection. Reviewed PMHx (mild asthma, prostate cancer just diagnosed, FLOYD on CPAP) and medications. At present, he reports feeling improved. Nausea resolved. Generalized weakness improved. Physical Exam Vital Signs Date Time Temp Pulse Resp B/P (MAP) Pulse Ox O2 Delivery O2 Flow Rate FiO2 12/12/18 20:01 97.1 90 118/84 (95) 93 Nasal Cannula 1.0 12/12/18 18:47 24 General Appearance: Alert, Awake Cardiovascular: Regular Rate and Rhythm Respiratory: Clear to Auscultation GI: Soft and Non-Tender (obese/BS present) Extremities: Warm, Perfused Psych: Alert & Oriented X3 Result Diagram: 12/12/18 1235 12/12/18 1235 Item Value Date Time Lactate 4.3 mmol/L *H 12/12/18 195 Lactate 2.9 mmol/L H 12/12/18 1700 Albumin 4.6 g/dl 12/12/18 1235 Total Protein 8.0 g/dl 12/12/18 1235 Troponin I < 0.012 ng/ml 12/12/18 1235 Alkaline Phosphatase 77 U/L 12/12/18 1235 Alanine Aminotransferase (ALT/SGPT) 22 U/L 12/12/18 1235 Aspartate Amino Transf (AST/SGOT) 27 U/L 12/12/18 1235 Total Bilirubin 0.5 mg/dl 12/12/18 1235 Calcium Level 9.3 mg/dl 12/12/18 1235 Lipase 56 U/L 12/12/18 1235 Amylase Level 67 U/L 12/12/18 1235 Urine Color Yellow 12/12/18 1546 Urine Clarity Clear 12/12/18 1546 Urine pH 5.0 pH 12/12/18 1546 Urine Specific Kramer 1.018 12/12/18 1546 Urine Protein 30 mg/dL 12/12/18 1546 Urine Glucose (UA) Negative mg/dL 12/12/18 1546 Urine Ketones 20 mg/dL H 12/12/18 1546 Urine Blood Small 12/12/18 1546 Urine Nitrite Positive H 12/12/18 1546 Urine Bilirubin Negative 12/12/18 1546 Urine Urobilinogen Negative mg/dL 12/12/18 1546 Urine Leukocyte Esterase Moderate H 12/12/18 1546 Urine RBC 4 /HPF 12/12/18 1546 Urine WBC 99 /HPF 12/12/18 1546 Urine Squamous Epithelial Cells Moderate /LPF H 12/12/18 1546 Urine Bacteria Many /HPF H 12/12/18 1546 Urine Mucus None /HPF 12/12/18 1546 Helicobacter pylori IgG Antibody Positive 12/12/18 1235 [facility] [address] [facility] [place] [address] ÁNGEL SHIPMAN M.D., DIRECTOR OF LABORATORY SERVICES IONA MAI M.D., PATHOLOGIST RUN DATE: 12/12/18 Specimen Inquiry Report PAGE 1 RUN TIME: 1104 PATIENT: CHRISTIJIM ACCT: [id number] LOC: LAB U: [id number] AGE/SX: 73/M ROOM: RE12/11/[address]: ANDREINA SOL MD : 1945 BED: DIS: STATUS: REG CLI TLOC: SPEC #: [id number] FABI: 12/11/18 STATUS: RES REQ #: [id number] RECD: 12/11/[address]: ANDREINA SOL MD SOURCE: [facility] ENTR: 12/11/18-1201 [facility] DR: SIGIFREDO BAE DO SPDESC: ORDERED: CULT URINE Procedure Result Verified URINE CULTURE Preliminary 12/12/18-1104 Organism 1 GRAM NEGATIVE CATA >100,000 COL/ML ID AND SENSITIVITY TO FOLLOW Imaging PATIENT NAME: Jim Barraza : 1945 MR: [id number] V: [id number] EXAM DATE: ORDERING PHYSICIAN: ARIANA DE LA CRUZ TECHNOLOGIST: Location: [facility] Patient: Jim Barraza : 1945 Visit/Account:[id number] Date of Sevice: 12/12/2018 Chest 2 views: HISTORY: Chest pain, vomiting. COMPARISON: 06/15/2017 FINDINGS: Frontal and lateral chest: Heart appears enlarged but may be accentuated by the AP technique. Mediastinal contours are normal. Pulmonary vasculature is within normal limits. There is no focal infiltrate or pleural effusion. No pneumothorax. No evidence of congestive heart failure. Degenerative changes present in the thoracic spine. IMPRESSION: Mild cardiomegaly although may be accentuated by projection. There is no evidence of acute cardiopulmonary abnormality otherwise. Report Dictated By: Allie Brown MD at 12/12/2018 2:14 PM Report E-Signed By: Allie Brown MD at 12/12/2018 2:16 PM WSN:[email or web address] PATIENT NAME: Jim Barraza : 1945 MR: [id number] V: [id number] EXAM DATE: ORDERING PHYSICIAN: ARIANA DE LA CRUZ TECHNOLOGIST: Location: [facility] Patient: Jim Barraza : 1945 Visit/Account:[id number] Date of Sevice: 12/12/2018 Abdomen AP erect and/or decubitus view: HISTORY: Chest pain, vomiting. Patient unable to stand. COMPARISON: None. FINDINGS: Supine and left lateral decubitus images were obtained. Bowel gas pattern is nonspecific without evidence of ileus, obstruction or free air. There may be a few scattered air-fluid levels but this is nonspecific. Stool is present in the right and rectosigmoid colon. There are no calcifications identified over the kidneys or along the expected course of the ureters. Mild degenerative changes present in the thoracic spine. IMPRESSION: Nonspecific bowel gas pattern. There are no findings of ileus, obstruction or free air. Report Dictated By: Allie Brown MD at 12/12/2018 2:12 PM Report E-Signed By: Allie Brown MD at 12/12/2018 2:14 PM WSN:[email or web address] EKG Interpretation PATIENT NAME: JIM BARRAZA : [id number] MR: [id number] V: [id number] EXAM DATE: ORDERING PHYSICIAN: ARIANA DE LA CRUZ TECHNOLOGIST: SHRUTHI Test Reason : NAUSEUA Blood Pressure : / mmHG Vent. Rate : 085 BPM Atrial Rate : 085 BPM P-R Int : 172 ms QRS Dur : 088 ms QT Int : 394 ms P-R-T Axes : 079 037 047 degrees QTc Int : 468 ms Sinus rhythm Decreased R wave progression anteriorly Artifact in a few leads - repeat if needed Confirmed by RITU BLACK ([id number]) on 12/12/2018 4:20:38 PM Referred By: ARIANA Confirmed By:RITU BLACK Assessment and Plan Problems: (1) Elevated lactic acid level Status: Acute Assessment & Plan: I suspect he probably had bacteremia or early septicemia with his GNR UTI. I agree with aggressive IV fluids with either NS or LR. The lactate should start to come back down with the treatment. Will monitor closely. The ertapenem should cover GNR very well. We should have identification of the organism tomorrow. Unfortunately, it appears blood cultures were not done prior to the antibiotics. (2) UTI (urinary tract infection) Status: Acute Assessment & Plan: He is growing a GNR on urine culture. The ertapenem should cover this very well. Await ID and sensitivities. (3) FLOYD on CPAP Status: Chronic Assessment & Plan: He did not bring his own machine and does not recall the pressure setting. Will place on auto-titrate CPAP while he is here. (4) Obstructive lung disease Status: Chronic Assessment & Plan: Will continue his albuterol as needed. Exam Sepsis Risk: Severe Sepsis Risk RITU BLACK MD December 12, 2018 22:07
[2018-12-13] VITALS (7 sets, daily range): BP systolic 116–138; BP diastolic 72–87; Ht 172.7 cm; Wt 108.9 kg
[2018-12-13] MEDS: LR(*) 1000 ML BAG 1,000 ML IV PRN (03:31)
[2018-12-13 06:35] LABS: PLATELET COUNT, AUTOMATED 192 K/uL (150-450)
[2018-12-13] MEDS: PANTOPRAZOLE SOD 40 MG TABEC PO SCH (08:37)
[2018-12-13] MEDS: ALLOPURINOL 100 MG TAB PO SCH (08:37)
[2018-12-13] MEDS: TAMSULOSIN HCL 0.4 MG CAP PO SCH (08:37)
[2018-12-13] MEDS: CITALOPRAM HYDROBROM 20 MG TAB PO SCH (08:37)
[2018-12-13] MEDS: busPIRone HCL 5 MG TAB PO SCH ×2 (08:39→21:24)
[2018-12-13] MEDS ORDERED: ASPIRIN 325 MG TAB PO SCH (09:00)
--- NOTE | 2018-12-13 11:48 | Hospitalist Progress Note ---
Subjective Progress Notes Subjective He was admitted with prostatitis. He reports improvement in symptoms this morning. He had no acute events overnight. Patient Complains of: Cardiovascular: No: Chest Pain Respiratory: No: Shortness of Breath Physical Exam Vital Signs Date Time Temp Pulse Resp B/P (MAP) Pulse Ox O2 Delivery O2 Flow Rate FiO2 12/13/18 08:14 94 Nasal Cannula 1.0 12/13/18 07:44 97.8 72 16 116/79 (91) 12/13/18 03:47 30.0 Intake and Output 12/13/18 06:59 Intake Total 1600 ml Output Total 1150 ml Balance 450 ml Intake Oral 0 ml IV Total 1600 ml Output Urine Total 1150 ml # Voids 4 General Appearance: Alert, Awake, No Acute Distress, Afebrile Neuro: No Gross deficits Cardiovascular: Regular Rate and Rhythm Respiratory: No Respiratory Distress, Clear to Auscultation GI: Soft and Non-Tender Psych: Alert & Oriented X3, Appropriate Mood & Affect Result Diagram: 12/13/18 0532 12/13/18 0532 Assessment and Plan Problems: (1) Elevated lactic acid level Status: Acute Assessment & Plan: He likely had bacteremia or early septicemia with his GNR UTI. He was given aggressive IV fluids with either NS. The lactate has trended downward and is now normal. Will monitor closely. He will be given ertapenem which is susceptible to GNR which grew in his urine culture from 12/11. Unfortunately, it appears blood cultures were not done prior to the antibiotics. Dr. Sol would like to have 4-6 weeks IV abx coverage to penetrate the prostate. Will place PICC line today. (2) UTI (urinary tract infection) Status: Acute Assessment & Plan: He grew E.Coli on urine culture. The ertapenem should cover this very well. (3) FLOYD on CPAP Status: Chronic Assessment & Plan: He did not bring his own machine and does not recall the pressure setting. Will place on auto-titrate CPAP while he is here. (4) Obstructive lung disease Status: Chronic Assessment & Plan: Will continue his albuterol as needed. Exam Sepsis Risk: No Definite Risk ELIAS AGUIAR SUPERVISOR COLD ROLLING December 13, 2018 11:48
--- NOTE | 2018-12-13 15:00 | Antimicrobial Stewardship ---
Antimicrobial Stewardship Empiricly appropriate: Yes (Ertapenem) Significant PMH: Yes (Irregular heartbeat, asthma, UTIs, Prostatitis, Gout, arthritis, depression, prostate cancer) Support empiric regimen: Yes Approriate Cultures done: Yes (Urine Cx (+) - GNR >100,000 cfu --> ecoli R to quinolones, ampicillin and unasyn, Bactrim.) Organism identified: Yes Determine cumulative duration: 12/12/18 - Ertapenem Day 1 Determine standard duration: 4-6 weeks prostatitis, would aim from 6 weeks Comment 73 yo M with a PMH of irregular heart beat, asthma, UTIs, prostatitis, gout, arthritis, depression, prostate cancer who presented with nausea and vomiting. Allergies: penicillins Tmax afebrile WBC 8.5 --> 7.9 Scr 1.4 --> 1.2 Lactate 2.9 - 4.3- 2.5 - 1.6 - 1.9 UA WBC 99, leuk est (+), nitrite (+) H pylori (+) Prostate Cancer diagnosis 12/11/18 - Urine Cx (+) GNR >100,000cfu ecoli (R- quinolones, bactrim, ampicillin, ampicillin sulbactam) Plan to treat with ertapenem 1g IV q24h for 4-6 weeks for prostatitis. Maria Del Carmen Stevenson, PharmD, OP MARIA DEL CARMEN STEVENSON December 13, 2018 15:00
--- NOTE | 2018-12-13 15:39 | RADIOLOGY IMAGING REPORT ---
[place] [facility] [place] : 1945 MR: [id number] V: [id number] EXAM DATE: ORDERING PHYSICIAN: ELIAS AGUIAR TECHNOLOGIST: [place] [facility] [place] : 1945 Visit/Account:[id number] Date of Sevice: 12/13/2018 Exam type: US GUIDANCE VASCULAR ACCESS, PICC LINE INSERTION History: medical terminologist IV abx Comparison: None. Findings: Informed consent was obtained. The patient's left arm was prepped and draped usual sterile fashion. Local anesthesia was accomplished with 1% lidocaine. Under both sonographic and fluoroscopic guidan ce a 47 cm long trimmed 4 Maldivian single lumen power PICC was inserted via the patent left basilic vei n with the distal tip resting in superior vena cava. The PICC line was flushed with 5 mL of saline f lush. The proximal portion PICC line was adhered to the patient's arm the sterile dressing. The son ographic images were saved to PACS. The fluoroscopy dose area product was 173.98 micro-Goddard per mete r squared. IMPRESSION: 1. Successful placement of a 47 cm long trimmed 4 Maldivian single-lumen parapelvic inserted via the pa tent left basilic vein with the distal tip resting in superior vena cava. Report Dictated By: Ching Calhoun MD at 12/13/2018 3:31 PM Report E-Signed By: Ching Calhoun MD at 12/13/2018 3:35 PM WSN:[email or web address]
--- NOTE | 2018-12-13 15:39 | RADIOLOGY IMAGING REPORT ---
[place] [facility] [place] NAME: Tim Franco : 1945 MR: [id number] V: [id number] EXAM DATE: ORDERING PHYSICIAN: ELIAS AGUIAR TECHNOLOGIST: Location: [facility] Patient: Tim Franco : 1945 Visit/Account:[id number] Date of Sevice: 12/13/2018 Exam type: US GUIDANCE VASCULAR ACCESS, PICC LINE INSERTION History: terminal make up operator IV abx Comparison: None. Findings: Informed consent was obtained. The patient's left arm was prepped and draped usual sterile fashion. Local anesthesia was accomplished with 1% lidocaine. Under both sonographic and fluoroscopic guidan ce a 47 cm long trimmed 4 Tongan single lumen power PICC was inserted via the patent left basilic vei n with the distal tip resting in superior vena cava. The PICC line was flushed with 5 mL of saline f lush. The proximal portion PICC line was adhered to the patient's arm the sterile dressing. The son ographic images were saved to PACS. The fluoroscopy dose area product was 173.98 micro-Goddard per mete r squared. IMPRESSION: 1. Successful placement of a 47 cm long trimmed 4 Tongan single-lumen parapelvic inserted via the pa tent left basilic vein with the distal tip resting in superior vena cava. Report Dictated By: Ching Calhoun MD at 12/13/2018 3:31 PM Report E-Signed By: Ching Calhoun MD at 12/13/2018 3:35 PM WSN:[email or web address]
[2018-12-13] MEDS: ERTAPENEM(*) 1 GM VIAL 1 GM in NS(*) 0.9% 100 ML MINI-BAG 100 ML IVPB SCH (17:30)
[2018-12-14 04:51] VITALS: BP 123/82
--- NOTE | 2018-12-14 06:53 | Hospitalist Progress Note ---
Subjective Progress Notes Subjective 73M admitted for prostatitis after biopsy. LUIS ARMANDO overnight, tolerating therapy well. Physical Exam Vital Signs Date Time Temp Pulse Resp B/P (MAP) Pulse Ox O2 Delivery O2 Flow Rate FiO2 12/14/18 04:51 97.8 64 18 123/82 (96) 96 CPAP 3.0 12/13/18 03:47 30.0 Intake and Output 12/14/18 07:00 Intake Total 2010 ml Output Total 1075 ml Balance 935 ml Intake Oral 1900 ml IV Total 110 ml Output Urine Total 1075 ml # Voids 1 # Bowel Movements 1 General Appearance: Alert, Awake, No Acute Distress Cardiovascular: Normal Rhythm & Peripheral Pulses Respiratory: No Respiratory Distress Extremities: Soft and Non Tender, Warm, Pulses, Perfused Result Diagram: 12/13/1853112/13/18531 Assessment and Plan Problems: (1) Prostatitis, acute Assessment & Plan: Post biopsy, growing resistant E Coli. Will need 6 weeks ertapenem. (2) Elevated lactic acid level Status: Acute Assessment & Plan: He was given aggressive IV fluids with either NS. The lactate has trended downward and is now normal. He will be given ertapenem for resistant EColi which grew in his urine culture from 12/11. Unfortunately, it appears blood cultures were not done prior to the antibiotics. Dr. Sol would like to have 4-6 weeks IV abx coverage to penetrate the prostate. PICC placed. (3) FLOYD on CPAP Status: Chronic Assessment & Plan: He did not bring his own machine and does not recall the pressure setting. Will place on auto-titrate CPAP while he is here. (4) Obstructive lung disease Status: Chronic Assessment & Plan: Will continue his albuterol as needed. Exam Sepsis Risk: No Definite Risk RODRIGUEZ IONA GRAYSON DO December 14, 2018 06:53
[2018-12-14] MEDS ORDERED: ERTA1VIA4 IVPB (06:56)
[2018-12-14 08:09] VITALS: BP 127/90
[2018-12-14] MEDS: TAMSULOSIN HCL 0.4 MG CAP PO SCH (08:22)
[2018-12-14] MEDS: CITALOPRAM HYDROBROM 20 MG TAB PO SCH (08:23)
[2018-12-14] MEDS: busPIRone HCL 5 MG TAB PO SCH (08:23)
[2018-12-14] MEDS: ALLOPURINOL 100 MG TAB PO SCH (08:23)
[2018-12-14] MEDS: PANTOPRAZOLE SOD 40 MG TABEC PO SCH (08:23)
[2018-12-14] MEDS ORDERED: ERTAPENEM(*) 1 GM VIAL 1 GM in NS(*) 0.9% 100 ML MINI-BAG 100 ML IVPB SCH (16:00)
--- NOTE | 2018-12-14 16:58 | DISCHARGE SUMMARY ---
DATE OF ADMISSION: December 12, 2018 DATE OF DISCHARGE: December 14, 2018 CHIEF COMPLAINT Urinary tract infection. HISTORY OF PRESENT ILLNESS Patient is a 73-year-old white male who underwent transurethral prostate biopsy approximately one week ago with prophylactic Levaquin antibiotics. He called the clinic on the 11 of December complaining of some mild dysuria. A urinalysis and urine culture were obtained, and he was started on Bactrim twice a day. However, on the , he experienced increasing symptoms and sought evaluation in the Emergency Room. SUMMARY OF HOSPITAL COURSE Patient was seen in the Emergency Room on the 12 of December. At that time, he had a normal chest x-ray, EKG, and cardiac enzymes. His creatinine was mildly elevated at 1.4, up from his baseline of 1.0. His CBC showed no elevated white count or left shift. His urine culture was growing out greater than 100,000 gram-negative rods with ID and sensitivities pending. Given the fact he recently had a biopsy and with recurring symptoms, he was admitted to the hospital for intravenous hydration and broad-spectrum antibiotics. Upon admission, a lactate was obtained which was elevated at 2.9. The patient was started on IV ertapenem 1 g q.24. Over the course of the first evening, his lactate increased to 4. However, with the ensuing 12 hours, it returned back to normal. By the , the patient was without complaints and remaining afebrile. His urine culture sensitivities returned E. coli, which was resistant to fluoroquinolones and Bactrim. Given the fact that he was allergic to PENICILLIN, the plan was made to continue his treatment for four weeks with the IV ertapenem. Therefore, a PICC line was placed, and he was set up with home health to receive IV antibiotics once a day. On the , the patient remained without complaints and was afebrile. His physical exam was unchanged. He was deemed ready for discharge. CONDITION AT TIME OF DISCHARGE Good. ACTIVITIES Ad reji. DIET Regular. MEDICINES He is to continue IV ertapenem once a day intravenously through his PICC line for a total of four weeks. FOLLOWUP The patient will be seen in the Urology Clinic in approximately two weeks. He also has an appointment for consultation with Radiation Oncology in approximately one week's time. He will also be given a followup to see Dr. Carr concerning a positive H. pylori test in the Emergency Room. BANG
== END 2018-12-14 16:15 | disposition home or self-care (01) | DRG 872 ==
LOC: ER 13:12 → MED 16:07
PROVIDERS: ADMIT Urology; ATTEND Urology
PROC: 5A09357 Assistance with Respiratory Ventilation, Less than 24 Consecutive Hours, Continuous Positive Airway Pressure (ICD-10-PCS; 2018-12-12)
PROC: 02HV33Z Insertion of Infusion Device into Superior Vena Cava, Percutaneous Approach (ICD-10-PCS; principal; 2018-12-13)
PROC: B548ZZA Ultrasonography of Superior Vena Cava, Guidance (ICD-10-PCS; 2018-12-13)
DX: A41.51 Sepsis due to Escherichia coli [E. coli] (principal); N41.0 Acute prostatitis; G47.33 Obstructive sleep apnea (adult) (pediatric); Z16.23 Resistance to quinolones and fluoroquinolones; Z16.29 Resistance to other single specified antibiotic; Z88.0 Allergy status to penicillin; F32.9 Major depressive disorder, single episode, unspecified; M1A.9XX0 Chronic gout, unspecified, without tophus (tophi); J44.9 Chronic obstructive pulmonary disease, unspecified; B96.20 Unspecified Escherichia coli [E. coli] as the cause of diseases classified elsewhere; Z96.653 Presence of artificial knee joint, bilateral; Z91.040 Latex allergy status; Z88.8 Allergy status to other drugs, medicaments and biological substances; Z85.46 Personal history of malignant neoplasm of prostate
CPT/HCPCS: 36415; 36573; 71046; 74019; 81001; 82040; 82150; 82247; 82310; 82374; 82435; 82565; 82947; 83605; 83690; 84075; 84132; 84155; 84295; 84450; 84460; 84484; 84520; 85025; 86677; 87077; 87088; 87186; 93005; 94660; 96361; 96374; 96375; 99285; C1751; J1335; J2060; J2405; J7030; J7120

== ENCOUNTER → 2018-12-12 | Outpatient (CLI) | payer MEDICARE, OTHER ==
[~2018-12-12] MED LIST changes: +ERTA1VIA4 IVPB
[2018-12-13 10:56] VITALS: BMI 36.5
== END ==
LOC: AMB 11:55
PROVIDERS: ATTEND Nurse Practitioner
DX: R11.2 Nausea with vomiting, unspecified (principal); F41.9 Anxiety disorder, unspecified; I49.3 Ventricular premature depolarization
CPT/HCPCS: A0425; A0427

== ENCOUNTER 2019-01-07 12:30 | Outpatient (RCR) | payer MEDICARE, OTHER ==
[2018-12-13 10:56] VITALS: BMI 36.5
[~2019-01-07 12:30] MED LIST changes: +CLOB59LO4 TP; +CLOT15CR64 TP; +ERTA1VIA4 IVPB; +TRIA15CR40 TP
[2019-01-07 14:31] VITALS: BP 121/74
--- NOTE | 2019-01-08 03:21 | TOBIN CONSULT ---
EVENT DATE: January 07, 2019 REASON FOR CONSULTATION Newly diagnosed adenocarcinoma of the prostate on background of chronic prostatitis. Ultrasound-guided biopsy of the prostate performed on 12/03/18 consistent with a Gracewood 3+3=6 adenocarcinoma involving 60% of the length of the core biopsy specimen. See below. STAGE T1c. HISTORY This is a 73-year-old gentleman who was referred to me by Dr. Sol to discuss cancer management options for newly diagnosed prostate malignancy. Patient originally was living up in [place]. He moved to [place] a few years back. He has had a history of chronic prostatitis with prior therapy at least four or five times in the past. He began seeing Dr. Sol late June or July 2017. He was treated for an episode of prostatitis at that time. His PSA has typically been in the 4 range for several years. PSA went up to 4.9 ng/mL by May 2018, and more recently, on 11/05/18, the PSA had risen to 6.6 ng/mL. Patient was advised to undergo prostate biopsy, which was then performed with ultrasound guidance. The biopsy date was 12/04/18. Gracewood 3+3=6 adenocarcinoma was noted on the left base specimen, involving up to 60% of the core biopsy. The remainder of the biopsy specimens demonstrated either acute or chronic prostatitis or atrophy on two specimens. Shortly after the biopsy, the patient was hospitalized for urosepsis. He is presently on IV antibiotics and appears to be responding well. Specifically, he is on ertapenem 1 g IV daily for 45 days. That is being directed by his primary care provider. Patient denies any new or persistent bone pain. He does have a history of lower back pain and has had surgery in the remote past as well, a discectomy. Voiding function has returned to baseline. He presently gets up typically once or maybe twice at night. He voids every two hours during the day with good control. He does have a history of BPH and is on tamsulosin at 0.4 mg at bedtime. His antibiotics are being directed by Dr. Carr. MEDICATIONS 1. Albuterol inhaler p.r.n. 2. Allopurinol 300 mg a day. 3. Aspirin 325 mg a day. 4. Buspirone 15 mg a day. 5. Citalopram 40 mg daily. 6. Colchicine 600 mg a day. 7. Ertapenem 1 g vial IV daily, potentially completing in one to two weeks. 8. Glucosamine 1500 mg a day. 9. Lotrisone cream daily as needed for rash. 10. Tamsulosin 0.4 mg each evening. 11. Triamcinolone 0.1% cream as needed for pruritus. ALLERGIES 1. PENICILLIN. 2. LATEX. 3. OXYCODONE. 4. EXTERNAL IODINE. PAST MEDICAL HISTORY 1. Prostate carcinoma. 2. Chronic prostatitis. 3. History of urosepsis. 4. DJD. 5. History of depression. 6. GERD. 7. Environmental allergies to dust, pollen, and latex. PAST SURGICAL HISTORY 1. Cataract extractions. 2. Retinal laser therapy. 3. Prior appendectomy. 4. Back surgery in the . 5. Prostate biopsy, November 2018. 6. Left knee replacement as well. SOCIAL HISTORY Patient is , has two sons living in their 40s. One is in [place] and the other is in [facility]. Does not drink alcohol. No recreational drugs. Does not smoke tobacco. 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 He moved to [place] to be closer to family and his grandchildren. REVIEW OF SYSTEMS Comprehensive review of systems notable for degenerative joint disease in the hands and shoulders. He also has a mild neuropathy, shortness of breath with moderate exertion, sleep apnea. PHYSICAL EXAMINATION GENERAL: The patient is a pleasant 73-year-old gentleman of large build. VITALS: Weight 250, pulse 83, blood pressure 121/74, respirations 16, O2 saturation 92% on room air, temperature 97.5. HEENT: Unremarkable. LUNGS: Clear bilaterally. LYMPHATIC: No peripheral lymphadenopathy. HEART: Heart sounds regular. ABDOMEN: Obese, with no gross organomegaly, mass or tenderness. RECTAL: Rectal exam was performed. It was somewhat difficult to feel the entire portion of the prostate due to patient's size. I could feel the inferior portion of the prostate with no discrete tenderness noted, no nodularity. Somewhat boggy prostate consistent with prostatitis. EXTREMITIES: No edema or cyanosis. NEUROLOGICAL: Grossly intact. IMPRESSION This is a 73-year-old gentleman with recently diagnosed Fermin 6 adenocarcinoma of the prostate. Tumor is involving a significant core along the left base of the gland at 60%. This is on the background of acute prostatitis in a biopsy specimen on the right side, and chronic prostatitis in eight additional specimens. RECOMMENDATIONS I discussed options from the radiation standpoint. Typically, for Fermin 6 tumors, we could perform prostate brachytherapy or external beam radiation therapy. I would be very hesitant to do prostate brachytherapy, however, in a patient who has a history of chronic prostatitis. I feel that placing a foreign body into the prostate may potentially place him at higher risk for recurrent episodes, which would be somewhat difficult to manage. If the patient elects for a radiation therapy option, I would proceed with the external beam radiation therapy option with IMRT. I would obtain an updated CT scan of the abdomen and pelvis. I did review the initial scans from two years ago, but would need updated information for targeting and staging. I did not see a strong indication for a bone scan. Furthermore, I would recommend repeating the PSA in four weeks. I also went through the acute and late side effects of the radiation program for education purposes today. Patient will follow up with Dr. Sol next Sunday. After that appointment, he will make a decision regarding active surveillance, active therapy with external beam radiation therapy, or alternative options, which would be reviewed by Dr. Sol. Thank you for the referral and opportunity to discuss options with Mr. Franco today. Please do not hesitate to call me if there are any questions or concerns about the above recommendations. BANG
== END 2019-01-13 16:50 | disposition home or self-care (01) ==
LOC: RAON 12:30
PROVIDERS: ATTEND Radiology Radiation Oncology
DX: C61 Malignant neoplasm of prostate (principal)
CPT/HCPCS: 99202

== ENCOUNTER 2019-01-08 11:24 | Outpatient (RCR) | payer MEDICARE, OTHER ==
[2018-12-13 10:56] VITALS: BMI 36.5
[2018-12-15] MEDS: ERTAPENEM(*) 1 GM VIAL 1 GM in NS(*) 0.9% 100 ML MINI-BAG 100 ML IVPB SCH (15:48)
[2018-12-16 15:45] VITALS: BP 93/78
[2018-12-16] MEDS: ERTAPENEM(*) 1 GM VIAL 1 GM in NS(*) 0.9% 100 ML MINI-BAG 100 ML IVPB SCH (16:00)
[2018-12-17 13:49] VITALS: BP 132/78
[2018-12-17] MEDS: ERTAPENEM(*) 1 GM VIAL 1 GM in NS(*) 0.9% 100 ML MINI-BAG 100 ML IVPB SCH (13:57)
[2018-12-18 11:35] VITALS: BP 132/81
[2018-12-18] MEDS: ERTAPENEM(*) 1 GM VIAL 1 GM in NS(*) 0.9% 100 ML MINI-BAG 100 ML IVPB SCH (11:43)
[2018-12-19] MEDS: ERTAPENEM(*) 1 GM VIAL 1 GM in NS(*) 0.9% 100 ML MINI-BAG 100 ML IVPB SCH (12:32)
[2018-12-19 12:33] VITALS: BP 116/70
[2018-12-19 13:13] VITALS: BP 138/80
[2018-12-20 11:41] VITALS: BP 112/84
[2018-12-20] MEDS: ERTAPENEM(*) 1 GM VIAL 1 GM in NS(*) 0.9% 100 ML MINI-BAG 100 ML IVPB SCH (11:44)
[2018-12-21 11:53] VITALS: BP 122/74
[2018-12-21] MEDS: ERTAPENEM(*) 1 GM VIAL 1 GM in NS(*) 0.9% 100 ML MINI-BAG 100 ML IVPB SCH (11:58)
[2018-12-21 12:20] VITALS: BP 124/76
[2018-12-22] MEDS: ERTAPENEM(*) 1 GM VIAL 1 GM in NS(*) 0.9% 100 ML MINI-BAG 100 ML IVPB SCH (11:56)
[2018-12-22 11:59] VITALS: BP 124/76
[2018-12-22 12:24] VITALS: BP 117/78
[2018-12-23] MEDS: ERTAPENEM(*) 1 GM VIAL 1 GM in NS(*) 0.9% 100 ML MINI-BAG 100 ML IVPB SCH (11:54)
[2018-12-23 11:58] VITALS: BP 128/77
[2018-12-24 11:31] VITALS: BP 112/69
[2018-12-24] MEDS: ERTAPENEM(*) 1 GM VIAL 1 GM in NS(*) 0.9% 100 ML MINI-BAG 100 ML IVPB SCH (11:54)
[2018-12-24 12:26] VITALS: BP 120/66
[2018-12-25] MEDS: ERTAPENEM(*) 1 GM VIAL 1 GM in NS(*) 0.9% 100 ML MINI-BAG 100 ML IVPB SCH (11:47)
[2018-12-25 11:50] VITALS: BP 126/79
[2018-12-26] MEDS: ERTAPENEM(*) 1 GM VIAL 1 GM in NS(*) 0.9% 100 ML MINI-BAG 100 ML IVPB SCH (12:05)
[2018-12-26 12:32] VITALS: BP 135/78
[2018-12-27 11:51] VITALS: BP 114/74
[2018-12-27] MEDS: ERTAPENEM(*) 1 GM VIAL 1 GM in NS(*) 0.9% 100 ML MINI-BAG 100 ML IVPB SCH (11:56)
[2018-12-28] MEDS: ERTAPENEM(*) 1 GM VIAL 1 GM in NS(*) 0.9% 100 ML MINI-BAG 100 ML IVPB SCH (10:05)
[2018-12-28 10:08] VITALS: BP 126/74
[2018-12-29] MEDS: ERTAPENEM(*) 1 GM VIAL 1 GM in NS(*) 0.9% 100 ML MINI-BAG 100 ML IVPB SCH (09:58)
[2018-12-29 09:59] VITALS: BP 121/72
[2018-12-30] MEDS: ERTAPENEM(*) 1 GM VIAL 1 GM in NS(*) 0.9% 100 ML MINI-BAG 100 ML IVPB SCH (11:52)
[2018-12-30 11:54] VITALS: BP 131/77
[2018-12-31 11:35] VITALS: BP 122/80
[2018-12-31] MEDS: ERTAPENEM(*) 1 GM VIAL 1 GM in NS(*) 0.9% 100 ML MINI-BAG 100 ML IVPB SCH (11:38)
[2019-01-01 11:47] VITALS: BP 133/80
[2019-01-02] MEDS: ERTAPENEM(*) 1 GM VIAL 1 GM in NS(*) 0.9% 100 ML MINI-BAG 100 ML IVPB SCH (11:46)
[2019-01-02 11:47] VITALS: BP 114/73
[2019-01-03 08:06] VITALS: BP 125/74
[2019-01-03] MEDS: ERTAPENEM(*) 1 GM VIAL 1 GM in NS(*) 0.9% 100 ML MINI-BAG 100 ML IVPB SCH (08:08)
[2019-01-03 08:46] VITALS: BP 118/70
[2019-01-04] MEDS: ERTAPENEM(*) 1 GM VIAL 1 GM in NS(*) 0.9% 100 ML MINI-BAG 100 ML IVPB SCH (09:50)
[2019-01-04 10:05] VITALS: BP 137/64
[2019-01-05] MEDS: ERTAPENEM(*) 1 GM VIAL 1 GM in NS(*) 0.9% 100 ML MINI-BAG 100 ML IVPB SCH (08:51)
[2019-01-05 08:53] VITALS: BP 122/63
[2019-01-06] MEDS: ERTAPENEM(*) 1 GM VIAL 1 GM in NS(*) 0.9% 100 ML MINI-BAG 100 ML IVPB SCH (08:44)
[2019-01-06 08:47] VITALS: BP 115/78
[2019-01-07 13:51] VITALS: BP 124/74
[2019-01-07] MEDS: ERTAPENEM(*) 1 GM VIAL 1 GM in NS(*) 0.9% 100 ML MINI-BAG 100 ML IVPB SCH (13:51)
[2019-01-08] MEDS: ERTAPENEM(*) 1 GM VIAL 1 GM in NS(*) 0.9% 100 ML MINI-BAG 100 ML IVPB SCH (11:37)
[2019-01-08 12:00] VITALS: BP 135/76
[2019-01-09 11:53] VITALS: BP 117/99
[2019-01-09] MEDS: ERTAPENEM(*) 1 GM VIAL 1 GM in NS(*) 0.9% 100 ML MINI-BAG 100 ML IVPB SCH (11:53)
== END 2019-02-10 11:39 | disposition home or self-care (01) ==
LOC: SPU 11:24
PROVIDERS: ATTEND Nurse Practitioner Family
DX: N41.9 Inflammatory disease of prostate, unspecified (principal); N39.0 Urinary tract infection, site not specified
CPT/HCPCS: 96365; J1335; 96366; 99202